=== PATIENT | female | born 1980 | race Two or more races ===

== ENCOUNTER → 2016-07-16 | Outpatient (CLI) | payer OTHER ==
--- NOTE | 2016-07-16 10:21 | US ---
July 16, [address] Booth, Thank you for allowing us to see your patient regarding AMA, prior x3. As you know she is a 36 year-old 5, para 3013. Her due date is 12/07/16 which is based on L/6. Her current gestat ional age based on this dating is 19 weeks 3 days. She had normal NIPT> Number of fetuses: 1 Placental location: anterior but no evidence accreta Cord Insertion: Central presentation: breech Cervix: 4.0 cm MVP: 4.7 cm The adnexa were evaluated. No pathology was seen. Right ovary seen Left ovary seen Measurements: Biparietal diameter: 44 mm 19 weeks, 3 days Head circumference: 166 mm 19 weeks, 3 days Abdominal circumference: 139 mm 19 weeks, 3 days Femur length: 31 mm 19 weeks, 4 days Humerus length: 28 mm 19 weeks, 2 days Transcerebellar diameter: 21 mm 19 weeks, 4 days Average ultrasound age: 19 weeks, 4 days Estimated weight: 291 gm weight percentile: 44 % ANATOMY Upper extremities: Normal Lower extremities: Normal Supratentorial brain: Normal Lateral ventricle: 5.8 mm Posterior fossa: Normal Cisterna Magna: 4.0 mm Spine: Normal Nuchal fold: 2.6 mm Face: Normal nose, lip, profile, alveolar ridge Heart: Normal rate, rhythm, axis, 4 chamber view, LVOT, RVOT, IVS Stomach: Normal Diaphragm: Normal Umbilical cord insertion: Normal Right kidney: Normal Left kidney: Normal Bladder: Normal Number of cord vessels: Three. Impression: This is a 36 year-old 5, para 3013 at 19 weeks, 3 days gestation. 1. SIUP with biometry cw ga of 19 weeks. Nl MVP. No anatomic abnormalities noted. 2. AMA - normal NIPT, I reviewed the detection rate and chromosomes for NIPT and the option of amnioc entesis as well. She declined amniocentesis today, understanding the limitations of NIPT and ultrasou nd in detection of aneuploidy and other syndromes. 3. Prior x3- no evidence accreta. Thank you for allowing me to see your patient. Approximately 15 minutes was spent with the patient a nd 15 was spent discussing her issues. Adenike Ambriz MD Diagnosis Division of Maternal Medicine Department of Obstetrics and Gynecology [facility]
--- NOTE | 2016-07-16 11:06 | US ---
Obstetrical Sonogram Clinical Indications: 19 weeks 3 days, MARGOT 12/07/2016, check growth and anatomy, 4 prior sect ions with history of , advanced maternal age Comparison: None Findings: A single fetus is present in breech presentation . A normal amount of amniotic fluid is p resent. Maximum amniotic fluid pocket = 4.7 cm. The placenta is located anteriorly, without evidence of myometrial invasion. The umbilical cord inserts normally into the placenta. There is no evidence o f placenta previa. The cervix is closed measuring 5.3 cm transabdominally. Both maternal ovaries are visualized and appear normal. motion and heart activity (140 bpm) are demonstrated. There are no abnormalities identified in the face, head, abdomen or spine. The heart has four chambers. There is a normal right and left ventricular outflow tract. The interventricular septum appears intact. Fluid is presen t in the stomach and urinary bladder. The renal region looks normal. There is a three-v essel cord, and normal cord insertion. 4 extremities are visible. Measurements were obtained as follows: Biparietal diameter = 44 mm = 19 weeks 3 days Head circumference = 166 mm = 19 weeks 3 days Abdominal circumference = 139 mm = 19 weeks 3 days Femur length = 31 mm = 19 weeks 4 days The estimated weight is 291 grams = 44 percentile. Gestational age by average ultrasound measurements = 19 weeks 4 days Ultrasound MARGOT 12/06/2016 Impression: 1. Viable intrauterine gestation of 19 weeks 3 days weeks estimated age. Size is consistent with kristie es. This report should be read in conjunction with a consultation by Dr. Adenike Ambriz.
== END ==
LOC: FIMAGING 08:32
PROVIDERS: ATTEND Obstetrics & Gynecology
DX: O09.522 Supervision of elderly multigravida, second trimester (principal); Z3A.19 19 weeks gestation of pregnancy; Z98.891 History of uterine scar from previous surgery

== ENCOUNTER → 2016-09-02 | Outpatient (CLI) | payer OTHER | LOC: FIMAGING 09:01 | PROVIDERS: ATTEND Obstetrics & Gynecology | DX: O99.412 Diseases of the circulatory system complicating pregnancy, second trimester (principal); I49.8 Other specified cardiac arrhythmias; O09.522 Supervision of elderly multigravida, second trimester; O34.219 Maternal care for unspecified type scar from previous cesarean delivery; Z3A.26 26 weeks gestation of pregnancy ==

== ENCOUNTER → 2016-09-10 | Outpatient (CLI) | payer OTHER | LOC: FIMAGING 11:46 | PROVIDERS: ATTEND Obstetrics & Gynecology | DX: O09.523 Supervision of elderly multigravida, third trimester (principal); Z3A.27 27 weeks gestation of pregnancy ==